=== PATIENT | female | born 1995 | race Caucasian/White ===

== ENCOUNTER → 2017-03-26 | Outpatient (CLI) | payer BC | LOC: MMGSC 11:39 | PROVIDERS: ATTEND Family Medicine | DX: N39.0 Urinary tract infection, site not specified (principal) | CPT/HCPCS: 87086 ==

== ENCOUNTER → 2017-07-22 | Outpatient (CLI) | payer BC | LOC: MMGSC 17:23 | PROVIDERS: ATTEND Family Medicine | DX: Z13.9 Encounter for screening, unspecified (principal) | CPT/HCPCS: 87491; 87591 ==

== ENCOUNTER → 2017-07-28 | Outpatient (CLI) | payer OTHER, BC ==
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
== END | disposition home or self-care (01) ==
LOC: RADXRMAIN 14:45
PROVIDERS: ATTEND Family Medicine
DX: M54.5 Low back pain (principal)
CPT/HCPCS: 72110

== ENCOUNTER → 2018-03-08 | Outpatient (CLI) | payer BC ==
[2018-03-08 19:24] LABS: Basophils % (A) 1 %; Eosinophils # (A) 0.1 k/uL (0-0.7); Eosinophils % (A) 3 %; HGB 13.6 gm/dL (11.4-16.0); Lymphocytes # (A) 1.7 k/uL (1.0-4.8); Lymphocytes % (A) 32 %; MCV 88.2 fL (80.0-100.0); Mean Platelet Volume 7.1; Monocytes # (A) 0.3 k/uL (0-1.0); Monocytes % (A) 6 %; Neutrophils # (A) 3.1 k/uL (1.3-7.7); Neutrophils % (A) 57 %; Platelet Count 312 k/uL (150-450); RBC 4.54 m/uL (3.80-5.40); RDW 12.3 % (11.5-15.5); WBC 5.5 k/uL (3.8-10.6)
[2018-03-08 19:42] LABS: ALT 33 U/L (9-52); AST 30 U/L (14-36); Albumin 5.1 g/dL (3.5-5.0); Alkaline Phosphatase 37 U/L (38-126); Anion Gap 16 mmol/L; Blood Urea Nitrogen 14 mg/dL (7-17); Calcium 10.7 mg/dL (8.4-10.2); Carbon Dioxide 27 mmol/L (22-30); Chloride 99 mmol/L (98-107); Glucose 80 mg/dL (74-99); Potassium 4.7 mmol/L (3.5-5.1); Sodium 142 mmol/L (137-145); Total Bilirubin 1.8 mg/dL (0.2-1.3); Total Protein 8.2 g/dL (6.3-8.2)
[2018-03-08 19:53] LABS: T4, Free (Free Thyroxine) 1.06 ng/dL (0.78-2.19)
== END | disposition home or self-care (01) ==
LOC: MMGSC 17:11
PROVIDERS: ATTEND Family Medicine
DX: R55 Syncope and collapse (principal)
CPT/HCPCS: 36415; 80053; 84439; 84443; 85025